=== PATIENT | male | born 2000 | race Caucasian/White ===

== ENCOUNTER 2019-07-11 17:30 | Emergency (ER) | payer OTHER ==
[~2019-07-11] VITALS: Ht 170.1 cm; Wt 68.7 kg
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
--- NOTE | 2019-07-11 17:55 | NUR ---
Assessments: Alert and somewhat anxious appearance, no immobilation applied as patient changing positions frequently wanting to sit up/refusal. Color pink, skin W/D. Resp even and unlabored. Chest: bilateral equal breath sounds, chest symmetrical with no crepitus with regular rhythm tachycardia noted, is noted on arrival to be utilizing full ROM neck. Refusal c-collar for neck tenderness. ABD: WNL, no c/o pain. Mild abrasion in LLQ. Bowel sounds present. : not assessed. Pelvis: stable with no pain reported. Back: Tenderness reported on palpation in the lower third of spine. No step offs noted. Moves all extremities. GCS=15/Trauma score-18. No hematomas are noted, no external hemorrhage identified.
--- NOTE | 2019-07-11 18:00 | NUR ---
Discussed with mother with patient presence the repetitive questioning or repeating self was mentioned earlier as the common occurance of a closed head injury representing as concussion like behavior. The head CT is imperative to look for any other underlying cause.
--- NOTE | 2019-07-11 18:05 | NUR ---
Pt to CT via cart.
--- NOTE | 2019-07-11 18:15 | NUR ---
Returned to room from CT. Pt crawled out of bed to get into chair removing monitors. Pt reporting doesn't want to lay in bed. Mother present in room.
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
--- NOTE | 2019-07-11 18:30 | NUR ---
Pending results xrays. Pt was instructed no to request to walk outside. Pt remains ad clifton in room not allowing monitoring.
[2019-07-11] MEDS ORDERED: IBUP-1773 PO (18:34)
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
[2019-07-11 19:15] VITALS: BP 118/72
--- NOTE | 2019-07-11 19:15 | NUR ---
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 Reviewed home instruction sheets and both verbalize understanding of instrucions. Pt would be returing to work Saturday and asked he stay home the weekend to rest so work note provided. Pt and mother advised to return to ED immediately for any worsening of condition, any changes or concerns they may have.
--- NOTE | 2019-07-12 18:00 | NUR ---
Note edi in EDM - 07/12/19 at 1823 by ALEXANDRE Discussed with mother with patient presence the repetitive questioning or repeating self was mentioned earlier as the common occurance of a closed head injury representing as concussion like behavior. The head CT is imperative to look for any other underlying cause.
[2019-07-12] MEDS ORDERED: CLON0.5T13 (18:36)
[2019-07-12] MEDS ORDERED: CITA20TA9 (18:36)
== END 2019-07-11 19:15 | disposition home or self-care (01) ==
LOC: ER FS 17:33
DX: S16.1XXA Strain of muscle, fascia and tendon at neck level, initial encounter (principal); S63.502A Unspecified sprain of left wrist, initial encounter; S39.012A Strain of muscle, fascia and tendon of lower back, initial encounter; R40.2142 Coma scale, eyes open, spontaneous, at arrival to emergency department; R40.2252 Coma scale, best verbal response, oriented, at arrival to emergency department; R40.2362 Coma scale, best motor response, obeys commands, at arrival to emergency department; Z88.0 Allergy status to penicillin; V48.5XXA Car driver injured in noncollision transport accident in traffic accident, initial encounter
CPT/HCPCS: 70450; 72100; 72125; 73110

== ENCOUNTER 2019-08-03 14:31 | Emergency (ER) | payer OTHER ==
[~2019-08-03] VITALS: Ht 170.1 cm; Wt 63.6 kg
[~2019-08-03 14:31] MED LIST: CITA20TA9; CLON0.5T13; IBUP-1773 PO
--- NOTE | 2019-08-03 15:32 | NUR ---
Pt contact made. Pt calm and cooperative with grandfather at bedside. Pt denies being homicidal or suicidal. Grandfather merely wants the pt to be medically cleared and options for possible treatment.
--- NOTE | 2019-08-03 16:09 | ED General ---
General Chief Complaint: Substance Abuse Stated Complaint: SUBSTANCE ABUSE Source of Information: Patient, Caregiver History of Present Illness Date Seen by Provider: Aug 03, 2019 Time Seen by Provider: 15:44 Initial Comments 19-year-old male presenting with complaints of substance abuse. He has legal troubles right now with the courts and has to stay clean from drugs to prevent having a urine drug screen showed positive. If this happens then his Bail and probation are lost. He was found to have several cans of dust beer coil cleaner spray that he had been huffing. He states that he had been doing this over the last few months to get high and avoid having a dirty UA for the drug screens. The drug officers at the [facility] told him that he had to come to the emergency department and he had to go into a rehabilitation program or he would lose his probation and go to long-term. He came in today because of that. He wants to go to rehabilitation rather than go back to long-term. He denies any suicidal or homicidal thoughts. He denies having any other drugs that he is using. Allergies and Home Medications Allergies Coded Allergies: Penicillins (Unverified Adverse Reaction, Unknown, 07/11/19) Home Medications Ibuprofen 600 Mg Tablet, 600 MG PO Q6H PRN for PAIN-MILD Prescribed by: BETH CURRY on 07/11/19 3077 Patient Home Medication List Home Medication List Reviewed: Yes Review of Systems Review of Systems Constitutional: no symptoms reported EENTM: other (left cheek pain where he has blisters from huffing and causing skin damage) Respiratory: cough Cardiovascular: no symptoms reported Gastrointestinal: no symptoms reported Genitourinary: no symptoms reported Musculoskeletal: no symptoms reported Skin: rash (blisters and skin irritation to his left cheek from huffing) Psychiatric/Neurological: No Symptoms Reported Past Sojixnw-Bwqqdc-Pjqllg Hx Past Med/Social Hx: Reviewed Nursing Past Med/Soc Hx Patient Social History Alcohol Use: Occasionally Uses Alcohol Beverage of Choice: Beer Recreational Drug Use: Yes Drug of Choice: Marijuana Smoking Status: Current Everyday Smoker Type Used: Cigarettes 2nd Hand Smoke Exposure: Yes Recent Foreign Travel: No Recent Hopitalizations: No Physical Abuse: No Sexual Abuse: No Mistreated: No Fear: No Immunizations Up To Date Tetanus Booster (TDap): Less than 5yrs Seasonal Allergies Seasonal Allergies: No Past Medical History Surgeries: No Respiratory: No Cardiac: No Neurological: No Genitourinary: No Gastrointestinal: No Musculoskeletal: No Endocrine: No HEENT: No Cancer: No Psychosocial: Yes Anxiety, Depression Integumentary: No Blood Disorders: No Physical Exam Vital Signs Vital Signs - First Documented 08/03/19 15:32 Temp 36.9 Pulse 99 Resp 12 B/P (MAP) 117/67 (84) Pulse Ox 98 Capillary Refill : Height, Weight, BMI Height: '" Weight: lbs. oz. 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 Advised that it could cause him to if he was huffing as it could make him going to the irregular heart rhythm more actually suffocated him and because of not getting oxygen to his lungs, brain, heart and kidneys. Stressed that he needed to go into rehabilitation and detox center to get off of the drugs and huffing and to stay clean. He denies any suicidal or homicidal thoughts. Departure Impression Primary Impression: Huffing Additional Impression: Substance abuse Disposition: 01 HOME, SELF-CARE Condition: Stable Departure-Patient Inst. Decision time for Depature: 16:08 Referrals: KELLENBERGER,DANIKA D DO (PCP/Family) Primary Care Physician Patient Instructions: ALCOHOL AND SUBSTANCE ABUSE, Marijuana Use and Addiction (DC) Add. Discharge Instructions: Do not continue to Cash as it can damage your liver and kidneys as well as cause you to suffocate or make your heart beat irregularly Check with Rehab/Detox centers about getting help to get off drugs All discharge instructions reviewed with patient and/or family. Voiced understanding. KYUNG GASCA MD Aug 03, 2019 16:09 POS
[2019-08-03 16:27] VITALS: BP 108/67
== END 2019-08-03 16:25 | disposition home or self-care (01) ==
LOC: EDUNIT# 14:31 → ER FS 14:32
DX: F18.10 Inhalant abuse, uncomplicated (principal); F12.10 Cannabis abuse, uncomplicated; F41.9 Anxiety disorder, unspecified; F32.9 Major depressive disorder, single episode, unspecified; F17.210 Nicotine dependence, cigarettes, uncomplicated; Z88.0 Allergy status to penicillin
CPT/HCPCS: 99283

== ENCOUNTER → 2019-08-10 | Outpatient (CLI) | payer OTHER ==
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
--- NOTE | 2019-08-10 17:48 | Diagnostic Imaging Report ---
INDICATION: Back pain. AP and lateral views of the lumbar spine are obtained. The lumbar vertebrae are normal in height and alignment. There is no fracture or subluxation. Disc spaces are of normal height. There is no spondylolysis or spondylolisthesis IMPRESSION: Negative lumbar spine. Dictated on workstation # [id number]
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
== END ==
LOC: RAD 16:28
PROVIDERS: ATTEND Emergency Medicine
DX: M54.2 Cervicalgia (principal); M54.5 Low back pain; V49.50XA Passenger injured in collision with unspecified motor vehicles in traffic accident, initial encounter
CPT/HCPCS: 72040; 72072; 72100

== ENCOUNTER 2022-01-07 14:39 | Emergency (ER) | payer OTHER ==
[~2022-01-07] VITALS: Ht 177.8 cm; Wt 81.6 kg
[~2022-01-07 14:39] MED LIST changes: -CLON0.5T13; +CLON0.5T4
[2022-01-07 14:59] VITALS: BP 144/68
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
[2022-01-07] MEDS ORDERED: TETANUS,DIPTH,PERTUSS P/F (BOOSTRIX) 0.5 ML VIAL IM ONE (15:30)
== END 2022-01-07 15:31 | disposition home or self-care (01) ==
LOC: EDUNIT# 14:39 → ER FS 14:42
DX: S01.511A Laceration without foreign body of lip, initial encounter (principal); Z23 Encounter for immunization; Y04.0XXA Assault by unarmed brawl or fight, initial encounter
CPT/HCPCS: 90715; 99284